=== PATIENT | female | born 2000 | race Caucasian/White ===

== ENCOUNTER 2020-07-04 15:46 | Emergency (ER) | payer BC ==
[~2020-07-04] VITALS: Ht 190.5 cm; Wt 87.8 kg
[2020-07-04] MEDS ORDERED: PLEASE ENTER HEIGHT AND WEIGHT MC SCH (16:00)
[2020-07-04] MEDS ORDERED: PLEASE ENTER ALLERGIES MC SCH (16:00)
[2020-07-04] MEDS ORDERED: LORazepam 1MG TABLET PO ONE (16:00)
[2020-07-04] MEDS ORDERED: LORazepam 1MG TABLET ONE (16:10)
[2020-07-04 16:39] LABS: BASOPHILS % (AUTO) 1 % (0-1); EOSINOPHILS % (AUTO) 15 % (1-7); LYMPHOCYTES % (AUTO) 24 % (22-44); MEAN CORPUSCULAR HEMOGLOBIN 29.2 pg (27.0-34.8); MEAN CORPUSCULAR HGB CONC 33.7 g/dL (32.4-35.8); MONOCYTES % (AUTO) 5 % (2-9); NEUTROPHILS % (AUTO) 55 % (42-75); PLATELET COUNT 310 x10^3/uL (130-400); RED CELL DISTRIBUTION WIDTH 13.4 % (9.6-15.2)
[2020-07-04 16:41] LABS: MD NO
[2020-07-04 16:50] LABS: ALBUMIN 4.2 g/dL (3.4-5.0); ANION GAP 8 mmol/L (5-15); CALCIUM 9.9 mg/dL (8.5-10.1); CHLORIDE 107 mmol/L (98-107)
[2020-07-04 16:55] LABS: ALANINE AMINOTRANSFERASE 17 U/L (12-78); ALKALINE PHOSPHATASE 60 U/L (45-117); BILIRUBIN,TOTAL 0.5 mg/dL (0.2-1.0); TOTAL PROTEIN 7.6 g/dL (6.4-8.2)
[2020-07-04] MEDS ORDERED: SODIUM CHLORIDE 0.9% 1,000ML IVBOLUS ONE (18:00)
[2020-07-04] MEDS ORDERED: SODIUM CHLORIDE FLUSH 10ML SYR IVF ONE (18:00)
--- NOTE | 2020-07-04 19:06 | NUR ---
report from mathew patterson
[2020-07-04 20:25] VITALS: BP 109/70
== END 2020-07-04 20:27 | disposition home or self-care (01) ==
LOC: ED 20:04
DX: E86.0 Dehydration (principal); R11.2 Nausea with vomiting, unspecified; R55 Syncope and collapse; F41.1 Generalized anxiety disorder; R06.4 Hyperventilation; R53.1 Weakness
CPT/HCPCS: 36415; 76700; 80053; 84703; 85025; 93005; 96360; 99285; J7030